=== PATIENT | male | born 1980 | race Caucasian/White ===

== ENCOUNTER → 2016-07-02 | Outpatient (CLI) | payer OTHER ==
[~2016-07-02] MED LIST: CZR50 PO; DXY100 PO; GABA-113 PO; IBUP-1050 PO; MULT-506 PO; NRN600 PO; PRAV40TA2 PO; PREG1CAP28 PO; PRLSR20 PO; RANI300T PO; SERT50TA PO
--- NOTE | 2016-07-02 08:42 | DIAGNOSTIC IMAGING REPORT ---
ADDENDUM ADDENDUM: The images were re-viewed, and there is questionable protrusion of muscular bundles in the right lateral calf. This could represent transfascial herniation of the peroneal musculature given the strong clinical suspicion for this entity. The fluid collection described previously is noted in the left calf. Electronically signed by: Rashard Chavez M.D. 07/02/2016 12:26 PM Dictated Date/Time: 07/02/2016 12:23 PM ORIGINAL REPORT ULTRASOUND BILATERAL LOWER EXTREMITY NONVASCULAR CLINICAL HISTORY: Localized swelling/mass. COMPARISON STUDY: No priors. FINDINGS: Real-time, grayscale, and color flow sonography of the right calf is performed the indicated site of interest. No mass or fluid collection is seen in the right calf. Survey images of the left calf were performed for comparison purposes. There is a large and complex appearing fluid collection identified within the left calf at a similar level. This appears to be intramuscular and measures at least 10 x 2 x 2.5 cm. No internal flow is shown on color imaging. IMPRESSION: 1. No sonographic abnormality is identified in the right calf at the indicated site of interest. 2. Survey images of the left calf at a similar location show a large complex and nonvascular fluid collection which is likely intramuscular in location. This could represent a dissecting popliteal cyst or possibly a liquefied hematoma. Clinical correlation will be essential. Electronically signed by: Rashard Chavez M.D. 07/02/2016 8:41 AM Dictated Date/Time: 07/02/2016 8:35 AM
== END | disposition home or self-care (01) ==
LOC: C.ULTRBC 07:19
PROVIDERS: ATTEND Physical Medicine & Rehabilitation
DX: R22.41 Localized swelling, mass and lump, right lower limb (principal); R60.0 Localized edema

== ENCOUNTER → 2016-10-12 | Day surgery (SDC) | payer OTHER ==
[2016-10-08 10:17] VITALS: Ht 175.3 cm; Wt 93.2 kg
[~2016-10-12] VITALS: Ht 175.3 cm; Wt 93.2 kg
[~2016-10-12] MED LIST changes: -DXY100 PO; +LIDOCAINE HCL 2% 2 ML VIAL (20MG/ML) ONE; +MIDAZOLAM HCL 1 MG/ML 2ML VIAL ONE; +PROPOFOL IV EMULSION 10 MG/ML 20 ML VIAL IV ONE; +SODIUM CHLORIDE 0.9% 500ML 500 ML IV ONE
[2016-10-12 09:15] VITALS: TEMP 37.2
--- NOTE | 2016-10-12 09:31 | Endo History and Physical ---
History & Physical Date of Service: Oct 12, 2016. Chief Complaint: epigastric pain and nausea Referring Physician: DESTINY Cline History of Present Illness UGI symptoms despite PPI Past Surgical History Hx Cardiac Surgery: No Hx Internal Defibrillator: No Hx Pacemaker: No Hx Abdominal Surgery: Yes (HERNIA X 3) Hx of Implantable Prosthesis: No Hx Post-Op Nausea and Vomiting: No Hx Cancer Surgery: No Hx Thoracic Surgery: No Hx Orthopedic: Yes (L5-S1 fusion, R CTR,PLANTAR FASCITIS R,) Hx Urinary Tract Surgery: No Social History Smoking Status: Former Smoker Hx Substance Use: No Hx Alcohol Use: Yes (OCC SOCIAL) Allergies Coded Allergies: Morphine (Verified Allergy, Mild, RASH, 10/08/16) Uncoded Allergies: ADHESIVE TAPE (Allergy, Intermediate, mccarty, 10/12/16) Current Medications Reported Home Medications Medications Dose Route/Sig Max Daily Dose Days Date Category Prilosec (Omeprazole) 20 Mg Capcr 20 Mg PO BID 10/12/16 Reported Advil (Ibuprofen) 200 Mg Tab 800 Mg PO PRN 10/08/16 Reported Multivitamin (Multivitamins) Tab 1 Tab PO QAM 10/08/16 Reported Zoloft (Sertraline HCl) 50 Mg Tab 50 Mg PO QAM 11/29/15 Reported Neurontin (Gabapentin) 300 Mg Cap 300 Mg PO TID 02/05/15 Reported Pravastatin Sodium 40 Mg Tab 40 Mg PO HS 01/09/14 Reported Losartan Potassium 50 Mg Tab 50 Mg PO HS 01/09/14 Reported Vital Signs Weight (Kilograms): 93.18 Height (Feet): 5 Height (Inches): 9 Physical Exam General Appearance: WD/WN, no apparent distress Assessment and Plan EGD with BLANCA today
--- NOTE | 2016-10-12 10:16 | GI REPORT ---
Procedure Date: 10/12/2016 9:29 AM Procedure: Upper GI endoscopy Indications: Epigastric abdominal pain, Heartburn, Nausea Medicines: Propofol per Anesthesia Complications: No immediate complications. Estimated blood loss: None. Estimated Blood Loss: Estimated blood loss: none. Procedure: Pre-Anesthesia Assessment: - Prior to the procedure, a History and Physical was performed, and patient medications, allergies and sensitivities were reviewed. The patient's tolerance of previous anesthesia was reviewed. - The risks and benefits of the procedure and the sedation options and risks were discussed with the patient. All questions were answered and informed consent was obtained. - Patient identification and proposed procedure were verified prior to the procedure by the physician and the nurse. The procedure was verified in the pre-procedure area in the procedure room. - Mental Status Examination: alert and oriented. Airway Examination: normal oropharyngeal airway and neck mobility. Respiratory Examination: clear to auscultation. CV Examination: normal. Abdominal Examination: bowel sounds present, abdomen soft and non-tender, no masses or organomegaly noted. - ASA Grade Assessment: II - A patient with mild systemic disease. After obtaining informed consent, the endoscope was passed under direct vision. Throughout the procedure, the patient's blood pressure, pulse, and oxygen saturations were monitored continuously. The scope was introduced through the mouth, and advanced to the second part of duodenum. The upper GI endoscopy was accomplished without difficulty. The patient tolerated the procedure well. Findings: The examined esophagus was normal. The BLANCA capsule with delivery system was introduced through the mouth and advanced into the esophagus, such that the BLANCA pH capsule was positioned 34 cm from the incisors, which was 6 cm proximal to the EG junction. Suction was applied to the well of the BLANCA pH capsule to suck in the adjacent mucosa of the esophagus using the external vacuum pump set at a minimum vacuum pressure of 550 mmHg for 60 seconds. The BLANCA pH capsule was then deployed by depressing the plunger on top of the handle to advance the locking pin into the mucosa, thereby attaching the capsule to the esophagus. The plunger was then rotated a quarter turn clockwise to release the capsule from the delivery system. The delivery system was then withdrawn. Endoscopy was utilized for probe placement and diagnostic evaluation. A small hiatus hernia was present. The examined duodenum was normal. Impression: - Normal esophagus. - Small hiatus hernia. - Normal examined duodenum. - The BLANCA pH capsule was positioned 34 cm from the naris, which was 6 cm proximal to the EG junction. - No specimens collected. Recommendation: - Study being done OFF acid reflux medications. Follow BLANCA instructions. - Discharge patient to home. Saloni Shearer D.O. Saloni Shearer, 10/12/2016 10:16:12 AM This report has been signed electronically. Note Initiated On: 10/12/2016 9:29 AM I attest to the content of the Intraoperative Record and orders documented therein, exceptions below
--- NOTE | 2016-10-12 10:35 | Anesthesiology Progress Note ---
Anesthesia Post Op Note Date & Time Oct 12, 2016 at 10:35 Vital Signs Pain Intensity: 4 Vital Signs Past 12 Hours Date Time Temp Pulse Resp B/P (MAP) Pulse Ox O2 Delivery O2 Flow Rate FiO2 10/12/16 09:15 37.2 72 20 141/89 (106) 96 Room Air Notes Mental Status: alert / awake / arousable, participated in evaluation Pt Amnestic to Procedure: Yes Nausea / Vomiting: adequately controlled Pain: adequately controlled Airway Patency, RR, SpO2: stable & adequate BP & HR: stable & adequate Hydration State: stable & adequate Anesthetic Complications: no major complications apparent
[2016-10-12 10:49] VITALS: BP 120/84; PULSE 75; O2SAT 98
--- NOTE | 2016-10-12 10:58 | Discharge Instructions ---
Endoscopy Patient Instructions Date / Procedure(s) Performed Oct 12, 2016. EGD Allergy Information Coded Allergies: Morphine (Verified Allergy, Mild, RASH, 10/08/16) Uncoded Allergies: ADHESIVE TAPE (Allergy, Intermediate, mccarty, 10/12/16) Discharge Date / Findings Oct 12, 2016. normal EGD; BLANCA placed Medication Instructions Stopped Medication(s): OMEPRAZOLE RANITIDINE Restart Stopped Medication(s): follow BLANCA instructions as above Provider Instructions Activity Restrictions - No exercising or heavy lifting for 24 hours. - Do not drink alcohol the day of the procedure. - Do not drive a car or operate machinery until the day after the procedure. - Do not make any important decisions or sign important papers in 24 hours after the procedure. Following Day: - Return to full activity which may include returning to work/school. Diet Start your diet with liquids and light foods (jello, soup, juice, toast). Then eat your usual diet if not nauseated. Treatment For Common After Affects For mild abdominal pain, bloating, or excessive gas: - Rest - Eat lightly - Lie on right side Follow-Up Information Follow-up with Dr Thorne as scheduled Anesthesia Information What You Should Know You have had a procedure that required some medicine to reduce anxiety and discomfort. This treatment is called moderate sedation. After receiving the treatment, you may be sleepy, but you will be able to breathe on your own. The effects of the treatment may last for several hours. Follow these instructions along with Activity/Diet recommendations noted above: * Do NOT do anything where dizziness or clumsiness would be dangerous. * Rest quietly at home today, then you can be up and about tomorrow. * Have a responsible person stay with you the rest of today. * You may have had an I.V. today. If so, you may take the dressing off later today. Recommendations Call your doctor if: * Trouble breathing * Continuous vomiting for more than 24 hours * Temperature above 101 degrees * Severe abdominal pain or bloating * Pain not relieved by pain medicine ordered * There is increased drainage or redness from any incision * A large amount of rectal bleeding greater than 2-3 tablespoons. (If you had a polyp/s removed or have hemorrhoids, a small amount of blood - from the rectum is to be expected.) * You have any unanswered questions or concerns. IN THE EVENT OF A SERIOUS EMERGENCY, GO TO THE NEAREST EMERGENCY ROOM Your discharge instructions were prepared by provider Saloni Shearer. Patient Instructions Signature Page Caden Drake Patient (or Guardian) Signature/Date: I have read and understand the instructions given to me by my caregivers. Caregiver/RN/Doctor Signature/Date: The above-named patient and/or guardian has received patient instructions on this date. + Original Patient Signature Page (only) stays with chart. Please make copy for patient.
--- NOTE | 2016-10-14 11:15 | Progress Note ---
Progress Note Date of Service Oct 14, 2016. Progress Note BLANCA PROCEDURE NOTE Requesting physician: Dr. Thorne Following endoscopic placement of BLANCA esophageal pH system, a 48 hour analysis was performed with the patient ON acid blocking medications. The fraction of total time the esophageal pH was below 4 was 0.7 on day one and 8.3 on day two. The overall fraction of time for the entire study period was 4.4% (normal is <4.2%) indicating an increase in acid exposure in the distal esophagus on day 2 of the study. The DeMeester score on day one was 2.8 ( normal <14.72) and day two was 30.1. The overall DeMeester score was16.0. The patient reported symptoms of heartburn and regurgitation as well as chest pain. There is correlation between symptoms and episodes of acid exposure. There are several prolonged periods of acid exposure on day 2 of the study. IMPRESSION: 1.Increase in acid exposure on day 2 of the study. 2. Good symptom correlation with episodes of acid exposure, particularly on day 2 of the study. 3. Few prolonged periods of acid exposure. STUDY DONE WITH PATIENT ON ACID BLOCKING MEDICATIONS. Saloni Shearer DO Associate, Dept. of Gastroenterology
== END | disposition home or self-care (01) ==
LOC: C.GI 09:03
PROVIDERS: ATTEND Internal Medicine
DX: R10.13 Epigastric pain (principal); R12 Heartburn; R11.0 Nausea; K44.9 Diaphragmatic hernia without obstruction or gangrene; Z98.1 Arthrodesis status; Z87.891 Personal history of nicotine dependence

== ENCOUNTER 2016-10-27 10:22 | Emergency (ER) | payer OTHER ==
[~2016-10-27] VITALS: Ht 175.3 cm; Wt 89.5 kg
[~2016-10-27 10:22] MED LIST changes: -LIDOCAINE HCL 2% 2 ML VIAL (20MG/ML) ONE; -MIDAZOLAM HCL 1 MG/ML 2ML VIAL ONE; -NRN600 PO; -PREG1CAP28 PO; -PROPOFOL IV EMULSION 10 MG/ML 20 ML VIAL IV ONE; -RANI300T PO; -SODIUM CHLORIDE 0.9% 500ML 500 ML IV ONE
[2016-10-27 10:26] VITALS: TEMP 36.8; Ht 175.3 cm; Wt 89.5 kg
[2016-10-27] MEDS ORDERED: ONDANSETRON INJ 2 MG/ML 2 ML VIAL IV STA (10:36)
[2016-10-27] MEDS ORDERED: PROMETHAZINE HCL INJ 6.25 MG in SODIUM CHLORIDE 0.9% 50ML 50 ML IV STA (10:36)
[2016-10-27] MEDS ORDERED: SODIUM CHLORIDE 0.9% 1000ML 1,000 ML IV STA ×2 (10:36)
[2016-10-27 10:58] LABS: BASO % 0.8 %; BASO ABS # 0.05 K/uL (0-0.2); COMPLETE YES; EOS % 0.5 %; HEMATOCRIT 48.1 % (42-52); IG% 0.2 %; LYMPH % 39.3 %; LYMPH ABS # 2.49 K/uL (1.2-3.4); MEAN CELL VOLUME 85.1 fL (80-100); MEAN CORPUSCULAR HGB CONC 34.1 g/dl (32-36); MEAN PLATELET VOLUME 10.2 fL (7.4-10.4); MONO % 7.3 %; NEUT % 51.9 %; PLATELET COUNT 230 K/uL (130-400); RED BLOOD COUNT 5.65 M/uL (4.7-6.1); WHITE BLOOD COUNT 6.33 K/uL (4.8-10.8)
[2016-10-27] MEDS ORDERED: OPTIRAY 320 IV PRN (11:00)
--- NOTE | 2016-10-27 11:02 | EMERGENCY ROOM VISIT NOTE ---
History Report prepared by Maxi: Evy Romo Under the Supervision of: Dr. Rashard Cain M.D. First contact with patient: 10:28 Chief Complaint: ABDOMINAL PAIN Stated Complaint: ABDOMINAL DISCOMFORT, NAUSEA Nursing Triage Summary: pt reports RUQ pain intermittently X 1 year has been treated for this occassiionally . toda worse than normal denies NVD History of Present Illness The patient is a 36 year old male who presents to the Emergency Room with complaints of worsening abdominal pain for the past few days. The patient has been having similar pains for the past month that have increased over the past few days. He states that today his pain is worse. He went to bed at 8pm last night and woke up at 8am this morning with worsening pain. The patient describes his pain as dull, but notes occasional sharp pains. He rates his pain as a 6/10 in severity. He is feeling nauseated and has not eaten anything since lunchtime yesterday. Friend at bedside states that he has not had much of an appetite over the past month and has lost 14 pounds in that time. The patient went to the [facility] at [facility] today and was sent here for further evaluation. His GI doctor had scheduled him for a CT scan with contrast in two days. The patient reports that he has never had a CT scan of his abdomen , although he has had x-rays and ultrasounds. He denies any previous abdominal surgeries. He has never had a colonoscopy before. He denies any testicular pain. The patient does have a history of a hiatal hernia, acid reflux, inguinal hernias, and an umbilical hernia. Source of History: patient, friend Onset: the past few days Position: abdomen (right sided) Symptom Intensity: 6/10 Quality: sharp, dull Timing: worsening Associated Symptoms: + nausea Note: Pt denies any testicular pain. Review of Systems See HPI for pertinent positives & negatives. A total of 10 systems reviewed and were otherwise negative. Past Medical & Surgical Medical Problems: (1) Anxiety (2) Chronic back pain (3) Depression (4) Dyslipidemia (5) HTN (hypertension) (6) Sepsis Surgical Problems: (1) H/O umbilical hernia repair (2) History of inguinal hernia repair (3) History of lumbar laminectomy (4) Chaplin teeth extracted Family History Heart disease Hypertension Social History Smoking Status: Never Smoker Alcohol Use: none Drug Use: none Marital Status: Housing Status: lives with family Occupation Status: employed Current/Historical Medications Scheduled Gabapentin (Gabapentin), 600 MG PO DAILY Losartan Potassium (Losartan Potassium), 50 MG PO DAILY Multivitamin (Multivitamin), 1 TAB PO QAM Omeprazole (Prilosec), 20 MG PO BID Pravastatin Sodium (Pravastatin Sodium), 40 MG PO HS Pregabalin (Lyrica), 75 MG PO AMPM Sertraline (Zoloft), 50 MG PO QAM Allergies Coded Allergies: Morphine (Verified Allergy, Mild, RASH, 10/08/16) Uncoded Allergies: ADHESIVE TAPE (Allergy, Intermediate, mccarty, 10/12/16) Physical Exam Vital Signs Date Time Temp Pulse Resp B/P (MAP) Pulse Ox O2 Delivery O2 Flow Rate FiO2 10/27/16 14:13 74 18 110/70 94 Room Air 10/27/16 13:07 69 18 125/70 98 Room Air 10/27/16 12:13 60 18 114/69 96 Room Air 10/27/16 10:26 36.8 86 18 146/97 98 Room Air Physical Exam GENERAL: Patient is in no acute distress. HEENT: No acute trauma, normocephalic atraumatic, mucous membranes moist, no nasal congestion, no scleral icterus. NECK: No stridor, no adenopathy, no meningismus, trachea is midline. LUNGS: Clear to auscultation bilaterally, no wheeze, no rhonchi, breath sounds equal. HEART: Without murmurs gallops or rubs, regular rate and rhythm. ABDOMEN: Soft, tender on the right primarily in the RLQ, bowel sounds positive, no hernias, no peritonitis. EXTREMITIES: No cyanosis or edema, full range of motion of all the joints without pain or difficulty, no signs for acute trauma. NEUROLOGIC: Oriented x 3, no acute motor or sensory deficits, no focal weakness. SKIN: No rash, no jaundice, no diaphoresis. Medical Decision & Procedures ER Provider Diagnostic Interpretation: Radiology results as stated below per my review and radiologist interpretation: CT OF THE ABDOMEN AND PELVIS WITH CONTRAST CLINICAL HISTORY: Abdominal pain. COMPARISON STUDY: Right upper quadrant ultrasound October 25, 2011. TECHNIQUE: Following IV administration of 93 mL of Optiray-320, axial images of the abdomen and pelvis were obtained from the lung bases to the proximal femurs. Images were reviewed in the axial, sagittal, and coronal planes. IV contrast was administered without complication. A dose lowering technique was utilized adhering to the principles of ALARA. Oral contrast was administered. CT DOSE: 461.70 mGy.cm FINDINGS: Visualized portions of the lower chest demonstrate a 0.9 cm centrally calcified left lower lobe pulmonary nodule which has decreased in size since exam of September 18, 2012. This is benign. No pneumatosis, free air or portal venous gas is present. The liver, spleen, adrenal glands and kidneys are unremarkable with exception of a 1.4 cm left cyst and possible fatty infiltration of the liver. There is no biliary or pancreatic ductal dilatation. There is no peripancreatic or pericholecystic infiltration. Caliber and wall thickness of small and large bowel are normal. The appendix is normal. There are postoperative findings consistent with a L5-S1 discectomy and bilateral pedicle screw fusion. There is no abscess or lymphadenopathy within the abdomen or his. There are scrotal surgical clips. No suspicious skeletal lesions are identified. There is no hydronephrosis. There are no ureteral calculi. IMPRESSION: No acute process within the abdomen or pelvis. Normal appendix. Electronically signed by: Zenon Bui M.D. 10/27/2016 1:39 PM Dictated Date/Time: 10/27/2016 1:32 PM Laboratory Results 10/27/16 10:45 Red Blood Count 5.65, Mean Corpuscular Volume 85.1, Mean Corpuscular Hemoglobin 29.0, Mean Corpuscular Hemoglobin Concent 34.1, Mean Platelet Volume 10.2, Neutrophils (%) (Auto) 51.9, Lymphocytes (%) (Auto) 39.3, Monocytes (%) (Auto) 7.3, Eosinophils (%) (Auto) 0.5, Basophils (%) (Auto) 0.8, Neutrophils # (Auto) 3.29, Lymphocytes # (Auto) 2.49, Monocytes # (Auto) 0.46, Eosinophils # (Auto) 0.03, Basophils # (Auto) 0.05 10/27/16 10:45 Test 10/27/16 10:45 10/27/16 11:00 White Blood Count 6.33 K/uL (4.8-10.8) Red Blood Count 5.65 M/uL (4.7-6.1) Hemoglobin 16.4 g/dL (14.0-18.0) Hematocrit 48.1 % (42-52) Mean Corpuscular Volume 85.1 fL (80-100) Mean Corpuscular Hemoglobin 29.0 pg (25-34) Mean Corpuscular Hemoglobin Concent 34.1 g/dl (32-36) Platelet Count 230 K/uL (130-400) Mean Platelet Volume 10.2 fL (7.4-10.4) Neutrophils (%) (Auto) 51.9 % Lymphocytes (%) (Auto) 39.3 % Monocytes (%) (Auto) 7.3 % Eosinophils (%) (Auto) 0.5 % Basophils (%) (Auto) 0.8 % Neutrophils # (Auto) 3.29 K/uL (1.4-6.5) Lymphocytes # (Auto) 2.49 K/uL (1.2-3.4) Monocytes # (Auto) 0.46 K/uL (0.11-0.59) Eosinophils # (Auto) 0.03 K/uL (0-0.5) Basophils # (Auto) 0.05 K/uL (0-0.2) RDW Standard Deviation 41.8 fL (36.4-46.3) RDW Coefficient of Variation 13.5 % (11.5-14.5) Immature Granulocyte % (Auto) 0.2 % Immature Granulocyte # (Auto) 0.01 K/uL (0.00-0.02) Anion Gap 8.0 mmol/L (3-11) Est Creatinine Clear Calc Drug Dose 113.1 ml/min Estimated GFR () 112.9 Estimated GFR (Non- 97.4 BUN/Creatinine Ratio 14.6 (10-20) Calcium Level 9.9 mg/dl (8.5-10.1) Total Bilirubin 0.8 mg/dl (0.2-1) Aspartate Amino Transf (AST/SGOT) 29 U/L (15-37) Alanine Aminotransferase (ALT/SGPT) 48 U/L (12-78) Alkaline Phosphatase 89 U/L (45-117) Total Protein 8.3 gm/dl (6.4-8.2) Albumin 4.7 gm/dl (3.4-5.0) Globulin 3.6 gm/dl (2.5-4.0) Albumin/Globulin Ratio 1.3 (0.9-2) Lipase 110 U/L (73-393) Urine Color DK YELLOW Urine Appearance CLEAR (CLEAR) Urine pH 7.0 (4.5-7.5) Urine Specific [place] 1.027 (1.000-1.030) Urine Protein NEG (NEG) Urine Glucose (UA) NEG (NEG) Urine Ketones 2+ (NEG) Urine Occult Blood NEG (NEG) Urine Nitrite NEG (NEG) Urine Bilirubin NEG (NEG) Urine Urobilinogen NEG (NEG) Urine Leukocyte Esterase TRACE (NEG) Urine WBC (Auto) 1-5 /hpf (0-5) Urine RBC (Auto) 0-4 /hpf (0-4) Urine Hyaline Casts (Auto) 1-5 /lpf (0-5) Urine Epithelial Cells (Auto) 5-10 /lpf (0-5) Urine Bacteria (Auto) NEG (NEG) Laboratory results reviewed by me. Medications Administered Medications (Trade) Dose Ordered Sig/Petrona Route Start Time Stop Time Status Last Admin Dose Admin Ondansetron HCl (Zofran Inj) 4 mg NOW STAT IV 10/27/16 10:36 10/27/16 10:38 DC 10/27/16 10:55 4 MG Sodium Chloride 1,000 ml @ 200 mls/hr Q5H STAT IV 10/27/16 10:36 10/27/16 15:35 10/27/16 12:12 200 MLS/HR Sodium Chloride 1,000 ml @ 999 mls/hr Q1H1M STAT IV 10/27/16 10:36 10/27/16 11:36 DC 10/27/16 10:55 999 MLS/HR Promethazine HCl 6.25 mg/Sodium Chloride 50.25 ml @ 204 mls/hr NOW STAT IV 10/27/16 10:36 10/27/16 10:50 DC 10/27/16 10:55 204 MLS/HR ED Course 1028: The patient was evaluated in room B5. A complete history and physical exam was performed. 1036: Promethazine HCl 6.25 mg/Sodium Chloride 50.25 ml @ 204 mls/hr IV, NSS 1000 ml @ 999 mls/hr IV, NSS 1000 ml @ 200 mls/hr IV, Zofran 4 mg IV 1404: I reassessed the patient at this time. He is feeling better and resting comfortably. I discussed the results and treatment plan with the patient. I answered all pertaining questions that he had. He expressed understanding and verbalized agreement. The patient will be discharged home. Medical Decision Differential diagnoses includes diverticulitis, appendicitis, biliary colic, pancreatitis, hernia, musculoskeletal pain, mass, UTI. There is no leukocytosis or concerning anemia. No significant electrolyte abnormality, kidney failure, hepatitis or pancreatitis. Urinalysis does not show infection or significant hematuria. Abdominal and pelvis CT does not show appendicitis or diverticulitis. No acute surgical process by CT scan. On my exam, there was no peritonitis. The patient was not febrile or toxic. He has had symptoms ongoing now for over a month. He is being seen already by GI. The patient received IV Zofran, IV saline and IV Phenergan. He has done well here, he has not required anything for pain. The patient was reassured by his workup. He is being discharged to follow with GI. A bland diet was suggested. He can use [id number] pain medication for discomfort. He can return here for fever or worsening symptoms. The cause for his discomfort is not clear. Impression Primary Impression: Right sided abdominal pain Scribe Attestation The scribe's documentation has been prepared under my direction and personally reviewed by me in its entirety. I confirm that the note above accurately reflects all work, treatment, procedures, and medical decision making performed by me. Departure Information Dispostion Home / Self-Care Referrals Atif Thorne M.D. (PCP) Forms Call Back Authorization, HOME CARE DOCUMENTATION FORM, IMPORTANT VISIT INFORMATION Patient Instructions My [facility] Additional Instructions follow with GI return if worsening or have fever bland diet---crackers, soup, toast, gatorade lab testing and imaging was all ok today
[2016-10-27] MEDS ORDERED: CZR50 PO (11:10)
[2016-10-27] MEDS ORDERED: NRN600 PO (11:10)
[2016-10-27] MEDS ORDERED: PREG1CAP28 PO (11:10)
[2016-10-27 11:14] LABS: URINE APPEARANCE CLEAR (CLEAR); URINE BILIRUBIN NEG (NEG); URINE COLOR DK YELLOW; URINE NITRITE NEG (NEG); URINE SPECIFIC GRAVITY 1.027 (1.000-1.030); UROBILINOGEN NEG (NEG); ZZUR CULT IF INDIC CLEAN CATCH NO
[2016-10-27 11:16] LABS: BUN/CREATININE RATIO 14.6 (10-20); CALCIUM 9.9 mg/dl (8.5-10.1); CREATININE 0.98 mg/dl (0.60-1.40); POTASSIUM 3.4 mmol/L (3.5-5.1)
[2016-10-27 11:18] LABS: MANUAL MICROSCOPIC REQUIRED? NO; REVIEW REQ? NO
[2016-10-27 11:19] LABS: ALB/GLOB RATIO 1.3 (0.9-2)
--- NOTE | 2016-10-27 13:41 | DIAGNOSTIC IMAGING REPORT ---
CT OF THE ABDOMEN AND PELVIS WITH CONTRAST CLINICAL HISTORY: Abdominal pain. COMPARISON STUDY: Right upper quadrant ultrasound October 25, 2011. TECHNIQUE: Following IV administration of 93 mL of Optiray-320, axial images of the abdomen and pelvis were obtained from the lung bases to the proximal femurs. Images were reviewed in the axial, sagittal, and coronal planes. IV contrast was administered without complication. A dose lowering technique was utilized adhering to the principles of ALARA. Oral contrast was administered. CT DOSE: 461.70 mGy.cm FINDINGS: Visualized portions of the lower chest demonstrate a 0.9 cm centrally calcified left lower lobe pulmonary nodule which has decreased in size since exam of September 18, 2012. This is benign. No pneumatosis, free air or portal venous gas is present. The liver, spleen, adrenal glands and kidneys are unremarkable with exception of a 1.4 cm left cyst and possible fatty infiltration of the liver. There is no biliary or pancreatic ductal dilatation. There is no peripancreatic or pericholecystic infiltration. Caliber and wall thickness of small and large bowel are normal. The appendix is normal. There are postoperative findings consistent with a L5-S1 discectomy and bilateral pedicle screw fusion. There is no abscess or lymphadenopathy within the abdomen or his. There are scrotal surgical clips. No suspicious skeletal lesions are identified. There is no hydronephrosis. There are no ureteral calculi. IMPRESSION: No acute process within the abdomen or pelvis. Normal appendix. Electronically signed by: Zenon Bui M.D. 10/27/2016 1:39 PM Dictated Date/Time: 10/27/2016 1:32 PM
[2016-10-27 14:13] VITALS: BP 110/70; PULSE 74; O2SAT 94
== END 2016-10-27 14:24 | disposition home or self-care (01) ==
LOC: C.EDB 10:24
DX: R10.84 Generalized abdominal pain (principal); I10 Essential (primary) hypertension; E78.5 Hyperlipidemia, unspecified; F32.9 Major depressive disorder, single episode, unspecified; F41.9 Anxiety disorder, unspecified; Z98.818 Other dental procedure status; Z98.890 Other specified postprocedural states; Z82.49 Family history of ischemic heart disease and other diseases of the circulatory system; Z79.899 Other long term (current) drug therapy

== ENCOUNTER → 2017-01-26 | Outpatient (CLI) | payer OTHER ==
[~2017-01-26] MED LIST changes: -GABA-113 PO; -IBUP-1050 PO; +NRN600 PO; +PREG1CAP28 PO
[2017-01-26 13:26] LABS: THYROID STIMULATING HORMONE 0.037 uIu/ml (0.300-4.500)
== END | disposition home or self-care (01) ==
LOC: C.LAB1850 10:01
PROVIDERS: ATTEND Internal Medicine Endocrinology, Diabetes & Metabolism
DX: E03.9 Hypothyroidism, unspecified (principal)

== ENCOUNTER 2017-03-14 17:31 | Emergency (ER) | payer OTHER ==
[~2017-03-14] VITALS: Ht 175.3 cm; Wt 93.4 kg
[2017-03-14 17:42] VITALS: Ht 175.3 cm; Wt 93.4 kg
[2017-03-14] MEDS ORDERED: MAGNESIUM SULFATE 1GM / D5W 1 GM BAG IV STA (17:53)
[2017-03-14] MEDS ORDERED: KETOROLAC TROMETHAMINE 30 MG/ML VIAL IV STA (17:53)
[2017-03-14] MEDS ORDERED: DiphenhydrAMINE HCL 50 MG/ML VIAL IV STA (17:53)
[2017-03-14] MEDS ORDERED: PROCHLORPERAZINE 5 MG/ML 2 ML VIAL IV STA (17:53)
--- NOTE | 2017-03-14 18:01 | EMERGENCY ROOM VISIT NOTE ---
History First contact with patient: 17:47 Chief Complaint: HEADACHE Stated Complaint: MIGRAINE History of Present Illness The patient is a 36 year old male who presents to the Emergency Room with complaints of headache. The patient reports he took Excedrin Migraine at home along with Zofran. Since that time the patient reports his headache has gotten slightly better. He denies any neck pain area the patient reports she's had migraines similar to this previously on the left side of his head. He reports he has never had any imaging of his head since he was a 1-year-old. The patient denies any fevers. Review of Systems See HPI for pertinent positives & negatives. A total of 10 systems reviewed and were otherwise negative. Past Medical/Surgical History Medical Problems: (1) Anxiety (2) Chronic back pain (3) Depression (4) Dyslipidemia (5) HTN (hypertension) (6) Sepsis Surgical Problems: (1) H/O umbilical hernia repair (2) History of inguinal hernia repair (3) History of lumbar laminectomy (4) [place] teeth extracted Family History Heart disease Hypertension Social History Smoking Status: Never Smoker Alcohol Use: none Drug Use: none Marital Status: Housing Status: lives with family Occupation Status: employed Current/Historical Medications Scheduled Amoxicillin & Pot Clavulanate (Augmentin 875-125 mg), 1 TAB PO BID Diclofenac (Voltaren), 50 MG PO BIDM Gabapentin (Gabapentin), 600 MG PO DAILY Losartan Potassium (Losartan Potassium), 50 MG PO DAILY Multivitamin (Multivitamin), 1 TAB PO QAM Omeprazole (Prilosec), 20 MG PO BID Pravastatin Sodium (Pravastatin Sodium), 40 MG PO HS Sertraline (Zoloft), 50 MG PO QAM Physical Exam Vital Signs Date Time Temp Pulse Resp B/P (MAP) Pulse Ox O2 Delivery O2 Flow Rate FiO2 03/14/17 19:20 77 16 120/67 92 Room Air 03/14/17 17:42 36.7 94 18 165/83 95 Room Air Physical Exam GENERAL: Patient is a healthy-appearing well-nourished male, no evidence of meningitis or encephalitis on exam HEAD: Normocephalic atraumatic EYES: Ocular movements intact pupils equal and react to light OROPHARYNX mucous membranes are moist no exudates present no erythema or edema present NECK: Supple no nuchal rigidity CHEST: Good equal expansion LUNGS: Clear and equal to auscultation CARDIAC: Normal S1 and S2 ABDOMEN: Soft nontender no guarding BACK: No CVA tenderness EXTREMITIES: No pain upon palpation normal muscle strength in all groups no clubbing cyanosis or edema NEURO: Patient is following commands is answering questions appropriately. Alert and oriented x3 Cranial Nerves 2-12 grossly intact Medical Decision & Procedures ER Provider Diagnostic Interpretation: HEAD WITHOUT CONTRAST (CT) CLINICAL HISTORY: 36 years-old Male with Pt c/o severe headache. Acute severe headache TECHNIQUE: Multiple axial CT images of the head were obtained without contrast. A dose lowering technique was utilized adhering to the principles of ALARA. CT DOSE: 687.98 mGy.cm COMPARISON: CT head 09/18/2012. FINDINGS: No acute intracranial hemorrhage, midline shift, intracranial mass, hydrocephalus, territorial ischemia or abnormal extra-axial collection. The calvarium is intact. The mastoid air cells, and middle ear cavities are clear. Moderate mucosal thickening of the right maxillary sinus. IMPRESSION: 1. No acute intracranial abnormal. 2. Moderate mucosal thickening of the right maxillary antrum. The above report was generated using voice recognition software. It may contain grammatical, syntax or spelling errors. Electronically signed by: Taqueria Walton M.D. 03/14/2017 6:34 PM Dictated Date/Time: 03/14/2017 6:31 PM Laboratory Results 03/14/17 18:10 Red Blood Count 5.04, Mean Corpuscular Volume 85.5, Mean Corpuscular Hemoglobin 29.0, Mean Corpuscular Hemoglobin Concent 33.9, Mean Platelet Volume 10.6, Neutrophils (%) (Auto) 84.2, Lymphocytes (%) (Auto) 11.6, Monocytes (%) (Auto) 3.3, Eosinophils (%) (Auto) 0.1, Basophils (%) (Auto) 0.4, Neutrophils # (Auto) 11.36, Lymphocytes # (Auto) 1.56, Monocytes # (Auto) 0.45, Eosinophils # (Auto) 0.02, Basophils # (Auto) 0.05 03/14/17 18:10 Test 03/14/17 18:10 White Blood Count 13.49 K/uL (4.8-10.8) Red Blood Count 5.04 M/uL (4.7-6.1) Hemoglobin 14.6 g/dL (14.0-18.0) Hematocrit 43.1 % (42-52) Mean Corpuscular Volume 85.5 fL (80-100) Mean Corpuscular Hemoglobin 29.0 pg (25-34) Mean Corpuscular Hemoglobin Concent 33.9 g/dl (32-36) Platelet Count 214 K/uL (130-400) Mean Platelet Volume 10.6 fL (7.4-10.4) Neutrophils (%) (Auto) 84.2 % Lymphocytes (%) (Auto) 11.6 % Monocytes (%) (Auto) 3.3 % Eosinophils (%) (Auto) 0.1 % Basophils (%) (Auto) 0.4 % Neutrophils # (Auto) 11.36 K/uL (1.4-6.5) Lymphocytes # (Auto) 1.56 K/uL (1.2-3.4) Monocytes # (Auto) 0.45 K/uL (0.11-0.59) Eosinophils # (Auto) 0.02 K/uL (0-0.5) Basophils # (Auto) 0.05 K/uL (0-0.2) RDW Standard Deviation 41.9 fL (36.4-46.3) RDW Coefficient of Variation 13.4 % (11.5-14.5) Immature Granulocyte % (Auto) 0.4 % Immature Granulocyte # (Auto) 0.05 K/uL (0.00-0.02) Anion Gap 7.0 mmol/L (3-11) Est Creatinine Clear Calc Drug Dose 121.6 ml/min Estimated GFR () 120.3 Estimated GFR (Non- 103.8 BUN/Creatinine Ratio 12.2 (10-20) Calcium Level 8.7 mg/dl (8.5-10.1) Total Bilirubin 0.2 mg/dl (0.2-1) Direct Bilirubin < 0.1 mg/dl (0-0.2) Aspartate Amino Transf (AST/SGOT) 20 U/L (15-37) Alanine Aminotransferase (ALT/SGPT) 46 U/L (12-78) Alkaline Phosphatase 90 U/L (45-117) Total Protein 7.0 gm/dl (6.4-8.2) Albumin 3.5 gm/dl (3.4-5.0) Lipase 83 U/L (73-393) Medications Administered Medications (Trade) Dose Ordered Sig/[place] Route Start Time Stop Time Status Last Admin Dose Admin Ketorolac Tromethamine (Toradol Inj) 30 mg NOW STAT IV 03/14/17 17:53 03/14/17 17:55 DC 03/14/17 18:35 30 MG Magnesium Sulfate (Magnesium Sulfate) 1 gm NOW STAT IV 03/14/17 17:53 03/14/17 17:55 DC 03/14/17 18:36 1 GM Prochlorperazine Edisylate (Compazine Inj) 10 mg NOW STAT IV 03/14/17 17:53 03/14/17 17:55 DC 03/14/17 18:35 10 MG Diphenhydramine HCl (Benadryl Inj) 50 mg NOW STAT IV 03/14/17 17:53 03/14/17 17:55 DC 03/14/17 18:35 50 MG Amoxicillin/ Clavulanate Potassium (Augmentin Tab) 875 mg ONE ONCE PO 03/14/17 18:45 03/14/17 18:46 DC 03/14/17 19:18 875 MG Sodium Chloride ([place] Nasal [place]) 2 sprays NOW ONCE NA 03/14/17 18:45 03/14/17 18:46 DC 03/14/17 19:18 2 SPRAYS Dexamethasone Sodium Phosphate 10 mg/Syringe 2.5 ml @ 1 mls/min NOW STAT IV 03/14/17 18:44 03/14/17 18:46 DC 03/14/17 19:25 1 MLS/MIN Medical Decision This is a 36-year-old male who presents emergency department complaining of headache. he has no evidence of meningitis encephalitis on examination and is afebrile here in emergency department. He does have slight elevation in his white blood count cell count. The patient was given Toradol Compazine and Benadryl and magnesium as well as Decadron. Repeat examination revealed improvement in the patient's symptoms. The patient was sent for CAT scan of the head and this was concerning for possible sinusitis in the right maxillary sinus. For this reason I did place the patient on Augmentin. He was given Decadron to try and prevent the headache from coming back. Patient will return for a lumbar puncture if he develops fevers or severe head and neck pain. Patient was in agreement with the treatment plan. Impression Primary Impression: Headache Additional Impression: Sinusitis Departure Information Dispostion Home / Self-Care Prescriptions Amoxicillin & Pot Clavulanate (Augmentin 875-125 mg) 1 Tab Tab 1 TAB PO BID for 10 Days, #20 TAB Prov: Jersey Bland MD 03/14/17 Referrals Atif Thorne M.D. (PCP) Patient Instructions My [facility] Problem Qualifiers Primary Impression: Headache Headache type: unspecified Headache chronicity pattern: unspecified pattern Intractability: not intractable Qualified Codes: R51 - Headache Additional Impression: Sinusitis Sinusitis location: maxillary Chronicity: acute Recurrence: not specified as recurrent Qualified Codes: J01.00 - Acute maxillary sinusitis, unspecified
[2017-03-14] MEDS ORDERED: DICL50TA3 PO (18:11)
[2017-03-14 18:20] LABS: BASO % 0.4 %; BASO ABS # 0.05 K/uL (0-0.2); COMPLETE YES; EOS % 0.1 %; HEMATOCRIT 43.1 % (42-52); IG% 0.4 %; LYMPH % 11.6 %; LYMPH ABS # 1.56 K/uL (1.2-3.4); MEAN CELL VOLUME 85.5 fL (80-100); MEAN CORPUSCULAR HGB CONC 33.9 g/dl (32-36); MEAN PLATELET VOLUME 10.6 fL (7.4-10.4); MONO % 3.3 %; NEUT % 84.2 %; PLATELET COUNT 214 K/uL (130-400); RED BLOOD COUNT 5.04 M/uL (4.7-6.1); WHITE BLOOD COUNT 13.49 K/uL (4.8-10.8)
--- NOTE | 2017-03-14 18:35 | DIAGNOSTIC IMAGING REPORT ---
HEAD WITHOUT CONTRAST (CT) CLINICAL HISTORY: 36 years-old Male with Pt c/o severe headache. Acute severe headache TECHNIQUE: Multiple axial CT images of the head were obtained without contrast. A dose lowering technique was utilized adhering to the principles of ALARA. CT DOSE: 687.98 mGy.cm COMPARISON: CT head 09/18/2012. FINDINGS: No acute intracranial hemorrhage, midline shift, intracranial mass, hydrocephalus, territorial ischemia or abnormal extra-axial collection. The calvarium is intact. The mastoid air cells, and middle ear cavities are clear. Moderate mucosal thickening of the right maxillary sinus. IMPRESSION: 1. No acute intracranial abnormal. 2. Moderate mucosal thickening of the right maxillary antrum. The above report was generated using voice recognition software. It may contain grammatical, syntax or spelling errors. Electronically signed by: Taqueria Walton M.D. 03/14/2017 6:34 PM Dictated Date/Time: 03/14/2017 6:31 PM
[2017-03-14 18:40] LABS: ALT/SGPT 46 U/L (12-78); AST/SGOT 20 U/L (15-37); BLOOD UREA NITROGEN 11 mg/dl (7-18); BUN/CREATININE RATIO 12.2 (10-20); CALCIUM 8.7 mg/dl (8.5-10.1); CARBON DIOXIDE 27 mmol/L (21-32); CHLORIDE 104 mmol/L (98-107); CREATININE 0.93 mg/dl (0.60-1.40); GLUCOSE 145 mg/dl (70-99); POTASSIUM 3.7 mmol/L (3.5-5.1); SODIUM 138 mmol/L (136-145)
[2017-03-14 18:43] LABS: ALKALINE PHOSPHATASE 90 U/L (45-117)
[2017-03-14] MEDS ORDERED: DEXAMETHASONE INJ 10 MG in SYRINGE 0 ML IV STA (18:44)
[2017-03-14] MEDS ORDERED: SODIUM CHLORIDE 0.65% NA SOLN 45 ML (OCEAN) ONE (18:45)
[2017-03-14] MEDS ORDERED: AMOXICILLIN/CLAVULANATE TAB 875 MG TAB PO ONE (18:45)
[2017-03-14] MEDS ORDERED: AMOX875T PO (19:31)
[2017-03-14 20:01] VITALS: BP 136/74; PULSE 76; O2SAT 93
== END 2017-03-14 20:01 | disposition home or self-care (01) ==
LOC: C.EDB 17:31 → C.EDC 20:01
DX: R51 Headache (principal); J01.00 Acute maxillary sinusitis, unspecified; F41.9 Anxiety disorder, unspecified; M54.9 Dorsalgia, unspecified; G89.29 Other chronic pain; F32.9 Major depressive disorder, single episode, unspecified; E78.5 Hyperlipidemia, unspecified; I10 Essential (primary) hypertension; Z82.49 Family history of ischemic heart disease and other diseases of the circulatory system; Z79.899 Other long term (current) drug therapy

== ENCOUNTER → 2017-04-06 | Outpatient (CLI) | payer OTHER ==
[~2017-04-06] MED LIST changes: +DICL50TA3 PO; -PREG1CAP28 PO
== END | disposition home or self-care (01) ==
LOC: C.LAB1850 12:43
PROVIDERS: ATTEND Internal Medicine Endocrinology, Diabetes & Metabolism
DX: E03.9 Hypothyroidism, unspecified (principal)

== ENCOUNTER → 2017-08-04 | Outpatient (CLI) | payer OTHER | END | disposition home or self-care (01) | LOC: C.LAB1850 14:00 | PROVIDERS: ATTEND Internal Medicine Endocrinology, Diabetes & Metabolism | DX: E03.9 Hypothyroidism, unspecified (principal) ==